=== PATIENT | female | born 1985 | race American Indian/Alaskan Native ===

== ENCOUNTER 2016-12-10 21:36 | Emergency (ER) | payer OTHER, MEDICAID ==
[2016-12-10] MEDS ORDERED: Acetaminophen/oxyCODONE 325-5 MG Tab PO ONE ×2 (21:57→23:58)
--- NOTE | 2016-12-10 22:01 | EDM.PDOC ---
ED HPI Skin/Rash - General Stated Complaint: COUGHT RING ON SOMETHING Time Seen by Provider: 12/10/16 21:40 Source: Reports: Patient History Limitations: Reports: No limitations - History of Present Illness INITIAL COMMENTS - FREE TEXT/NARRATIVE: caught engagement ring- on left ring finger on hook in closet. pain and swelling to left index finger, attempted to get engagement ring off but unable. Ring bent and has not been off in "very long time" Occurred 5-10 minutes PIT SLAG[place]. Location, Skin: Reports: upper extremity, left Quality: Reports: Throbbing Severity: severe Place of Occurrence: home - Related Data Allergies Allergy/AdvReac Type Severity Reaction Status Date / Time No Known Allergies Allergy Verified 12/11/16 03:03 Home Meds: Ambulatory Orders Medication Instructions Recorded Confirmed . [No Known Home Meds] 12/11/16 12/11/16 Past Medical History - Past Health History Medical/Surgical History: Denies Medical/Surgical History Social & Family History - Family History Family Medical History: Noncontributory - Tobacco Use Smoking Status *Q: Current Every Day Smoker Years of Tobacco use: 14 Packs/Tins Daily: 0.5 Used Tobacco, but Quit: No Second Hand Smoke Exposure: Yes - Alcohol Use Days Per Week of Alcohol Use: 2 Number of Drinks Per Day: 17 Total Drinks Per Week: 34 - Recreational Drug Use Recreational Drug Use: No Drug Use in Last 12 Months: No - Sexual History Sexual History: Reports: Sexually active - Living Situation & Occupation Occupation: employed ED ROS GENERAL - Review of Systems Review Of Systems: ROS reveals no pertinent complaints other than HPI. ED EXAM, SKIN/RASH Exam: See Below Exam Limited By: No limitations General Appearance: alert, moderate distress Eye Exam: bilateral eye: EOMI Throat/Mouth: Normal inspection Head: atraumatic Respiratory/Chest: no respiratory distress Cardiovascular: normal peripheral pulses, regular rate, rhythm Extremities: joint swelling (MIP), limited range of motion, other (left ring finger swollen, cicumferential abrasion to left 4th finger. Good capillary refill.). No: normal inspection, normal range of motion, mottled Neurological: alert, oriented, normal cognition Skin: Warm, Dry, Intact, Ecchymosis (proximal 4th left finger) Location, Skin: lower extremity, right Associated features: tenderness ED SKIN PROCEDURES - Additional/Other Procedure(s) Other (Free Text) Procedure(s): Gold band with white stones removed with ring cutter and plier. Superficial laceration proximal howell surface and web between 4th and 5th finger. Ring given to patient's mother. Course - Vital Signs Last Recorded V/S: Last Vital Signs Temp 97.7 F 12/10/16 21:40 Pulse 90 12/10/16 21:40 Resp 20 12/10/16 21:40 BP 133/94 H 12/10/16 21:40 Pulse Ox 100 12/10/16 21:40 - Orders/Labs/Meds Meds: Medications Discontinued Medications Generic Name Dose Route Start Last Admin Trade Name Peter PRN Reason Stop Dose Admin Oxycodone/Acetaminophen 1 tab 12/10/16 21:57 12/10/16 22:28 Percocet 325-5 Mg PO 12/10/16 21:58 1 tab ONETIME ONE Administration Oxycodone/Acetaminophen Confirm 12/10/16 23:58 12/11/16 00:00 Percocet 325-5 Mg Administered 12/10/16 23:59 Not Given Dose 1 tab .ROUTE .STK-MED ONE - Radiology Interpretation Free Text/Narrative:: xray left 4th finger and hand negative for fracture or dislocation. - Re-Assessments/Exams Free Text/Narrative Re-Assessment/Exam: Left 4th finger swollen improved following removal of ring and percocet , limited ROM due to pain and swelling of joint.. slight tingling back of finger. . Departure - Departure Time of Disposition: 23:46 Disposition: Home, Self-Care 01 Condition: good Clinical Impression: Injury of ring finger Qualifiers: Encounter type: initial encounter Laterality: right Qualified Code(s): S69.91XA - Unspecified injury of right wrist, hand and finger(s), initial encounter Instructions: Abrasion Additional Instructions: ice to hand finger rest elevation follow up if pain and swelling worse hydrocodone 10/325 one as needed for pain after 2 am x1 dose alternate tylenol and ibuprofen for discomfort
[2016-12-10] MEDS ORDERED: Acetaminophen/oxyCODONE 325-5 MG Tab ONE (23:58)
[2016-12-11 03:03] VITALS: BP 133/94
== END 2016-12-11 | disposition home or self-care (01) ==
LOC: DL.ED 21:36
DX: S61.412A Laceration without foreign body of left hand, initial encounter (principal); S60.042A Contusion of left ring finger without damage to nail, initial encounter; F17.210 Nicotine dependence, cigarettes, uncomplicated; W23.0XXA Caught, crushed, jammed, or pinched between moving objects, initial encounter; Y92.009 Unspecified place in unspecified non-institutional (private) residence as the place of occurrence of the external cause
CPT/HCPCS: 73130; 99283; A9270

== ENCOUNTER 2017-03-23 21:03 | Emergency (ER) | payer OTHER, MEDICAID | END 2017-03-23 22:40 | disposition left against medical advice (07) | LOC: DL.ED 21:03 | DX: Z53.21 Procedure and treatment not carried out due to patient leaving prior to being seen by health care provider (principal) ==

== ENCOUNTER 2017-03-24 17:46 | Emergency (ER) | payer OTHER, MEDICAID ==
[2017-03-24 18:12] VITALS: BP 131/75
--- NOTE | 2017-03-24 18:15 | EDM.PDOC ---
Scribed by Patricia Riggs 03/24/17 1813 for Donato Simpson MD ED HPI GENERAL MEDICAL PROBLEM - General Chief Complaint: Upper Extremity Injury/Pain Stated Complaint: [id number] RING WONT COME OFF Time Seen by Provider: 03/24/17 17:59 Source of Information: Reports: Patient, RN, RN Notes Reviewed History Limitations: Reports: No Limitations - History of Present Illness INITIAL COMMENTS - FREE TEXT/NARRATIVE: Ring stuck on left 4th finger x3 days. Quality: Reports: Ache Severity: Moderate Improves with: Reports: None Worsens with: Reports: None Associated Symptoms: Reports: No Other Symptoms - Related Data Allergies Allergy/AdvReac Type Severity Reaction Status Date / Time No Known Allergies Allergy Verified 12/11/16 03:03 Home Meds: Home Meds . [No Known Home Meds] 12/11/16 [History] Past Medical History - Past Health History Medical/Surgical History: Denies Medical/Surgical History Social & Family History - Family History Family Medical History: Noncontributory - Tobacco Use Smoking Status *Q: Current Every Day Smoker Years of Tobacco use: 14 Packs/Tins Daily: 0.5 Used Tobacco, but Quit: No Second Hand Smoke Exposure: Yes - Alcohol Use Days Per Week of Alcohol Use: 2 Number of Drinks Per Day: 17 Total Drinks Per Week: 34 - Recreational Drug Use Recreational Drug Use: No Drug Use in Last 12 Months: No - Sexual History Sexual History: Reports: Sexually Active - Living Situation & Occupation Occupation: Employed Review of Systems - Review of Systems Review Of Systems: ROS reveals no pertinent complaints other than HPI. ED EXAM, GENERAL - Physical Exam Exam: See Below Exam Limited By: No Limitations General Appearance: Alert, WD/WN, No Apparent Distress Extremities: Other (Ring on left 4th finger with moderate swelling of the proximal interphanageal joint of the left 4th finger over which she is unable to remove the ring. ) Course - Vital Signs Text/Narrative:: See nurses noted for vitals. Last Recorded V/S: Last Vital Signs Temp 36.5 C 03/24/17 18:10 Pulse 108 H 03/24/17 18:10 Resp 14 03/24/17 18:10 BP 131/75 03/24/17 18:10 Pulse Ox 100 03/24/17 18:10 - Re-Assessments/Exams Free Text/Narrative Re-Assessment/Exam: 03/24/17 18:12 The ring was removed with a battery operated ring cutter with no complications. Departure - Departure Time of Disposition: 18:08 Disposition: Home, Self-Care 01 Condition: Good Clinical Impression: Tight ring on finger - Discharge Information Instructions: Finger Sprain Forms: ED Department Discharge Additional Instructions: Ice the finger until the swelling goes down. Do not put a ring on your finger. Follow up in clinic if any further problems. I have read and agree with the documentation that has been completed regarding this visit. By signing this record, I attest that the documentation was completed in my physical presence and is an accurate record of the encounter.
== END 2017-03-24 18:18 | disposition home or self-care (01) ==
LOC: DL.ED 17:46
DX: M79.89 Other specified soft tissue disorders (principal); F17.210 Nicotine dependence, cigarettes, uncomplicated
CPT/HCPCS: 99283

== ENCOUNTER 2017-07-15 22:15 | Emergency (ER) | payer OTHER, MEDICAID ==
[2017-07-15 22:20] VITALS: BP 120/77
[2017-07-15] MEDS ORDERED: Codeine/Promethazine 10-6.25 MG/5 ML Syrup 5 ML UD Cup PO ONE (22:31)
[2017-07-15] MEDS ORDERED: Albuterol/Ipratropium 3.0-0.5 MG/3 ML Neb Soln NEB ONE (22:31)
--- NOTE | 2017-07-15 22:38 | EDM.PDOC ---
ED HPI GENERAL MEDICAL PROBLEM - General Chief Complaint: ENT Problem Stated Complaint: ? STREP THROAT Time Seen by Provider: 07/15/17 22:32 Source of Information: Reports: Patient History Limitations: Reports: No Limitations - History of Present Illness INITIAL COMMENTS - FREE TEXT/NARRATIVE: 2 days h/o cough & sore throat and not getting better. Throat Pain Score (Numeric/FACES): 6 - Related Data Allergies Allergy/AdvReac Type Severity Reaction Status Date / Time No Known Allergies Allergy Verified 07/15/17 22:20 Home Meds: Home Meds . [No Known Home Meds] 12/11/16 [History] Past Medical History - Past Health History Medical/Surgical History: Denies Medical/Surgical History - Past Surgical History Female Surgical History: Reports: Hysterectomy Social & Family History - Family History Family Medical History: Noncontributory - Tobacco Use Smoking Status *Q: Current Every Day Smoker Years of Tobacco use: 14 Packs/Tins Daily: 0.5 Used Tobacco, but Quit: No Second Hand Smoke Exposure: Yes - Caffeine Use Caffeine Use: Reports: Soda, Tea - Alcohol Use Days Per Week of Alcohol Use: 2 Number of Drinks Per Day: 17 Total Drinks Per Week: 34 - Recreational Drug Use Recreational Drug Use: No Drug Use in Last 12 Months: No - Sexual History Sexual History: Reports: Sexually Active - Living Situation & Occupation Occupation: Employed ED ROS ENT - Review of Systems Review Of Systems: ROS reveals no pertinent complaints other than HPI. ED EXAM, ENT - Physical Exam Exam: See Below Exam Limited By: No Limitations General Appearance: Alert, WD/WN, Mild Distress, Moderate Distress, Other (upset ) Ears: Hearing Grossly Normal Mouth/Throat: Pharyngeal Erythema, Tonsillar Erythema Head: Atraumatic Neck: Non-Tender, Full Range of Motion Respiratory/Chest: Rhonchi, Wheezing. No: No Accessory Muscle Use, Decreased Breath Sounds Cardiovascular: Regular Rate, Rhythm GI/Abdominal: Soft, Non-Tender Neurological: Alert, Oriented, Normal Cognition, Normal Gait, No Motor/Sensory Deficits Psychiatric: Flat Affect Skin: Warm, Dry, Normal Color Lymphatic: No Adenopathy Course - Vital Signs Last Recorded V/S: Last Vital Signs Temp 36.6 C 07/15/17 22:17 Pulse 91 07/15/17 22:17 Resp 18 07/15/17 22:17 BP 120/77 07/15/17 22:17 Pulse Ox 100 07/15/17 22:17 - Orders/Labs/Meds Orders: Active Orders 24 hr Category Date Time Status RT Aerosol Therapy [RC] ASDIRECTED Care 07/15/17 22:31 Active CULTURE STREP A CONFIRMATION [RM] Stat Lab 07/15/17 22:24 Results STREP SCRN A RAPID W CULT CONF [RM] Stat Lab 07/15/17 22:24 Results Meds: Medications Discontinued Medications Generic Name Dose Route Start Last Admin Trade Name Freq PRN Reason Stop Dose Admin Albuterol/Ipratropium 3 ml 07/15/17 22:31 07/15/17 22:44 Duoneb 3.0-0.5 Mg/3 Ml NEB 07/15/17 22:32 3 ml ONETIME ONE Administration Amoxicillin 500 mg 07/15/17 22:54 Amoxil PO 07/15/17 22:55 ONETIME ONE Promethazine HCl/Codeine 5 ml 07/15/17 22:31 07/15/17 22:45 Phenergan With Codeine PO 07/15/17 22:32 5 ml ONETIME ONE Administration - Re-Assessments/Exams Free Text/Narrative Re-Assessment/Exam: 07/15/17 22:56 results discussed with pt who is feeling better. Departure - Departure Time of Disposition: 22:56 Disposition: Home, Self-Care 01 Clinical Impression: Bronchospasm with bronchitis, acute, Tonsillitis - Discharge Information Instructions: Tonsillitis, [id number] Forms: ED Department Discharge Additional Instructions: 1) rest as much as possible 2) don't sleep flat at night 3) drink lots of liquids 4) follow up at clinic or recheck as needed rx given; amox 250mg tid x 30 phenergan codeine syrup qid prn x 4oz - My Orders Last 24 Hours: My Active Orders 07/15/17 22:24 CULTURE STREP A CONFIRMATION [RM] Stat STREP SCRN A RAPID W CULT CONF [RM] Stat 07/15/17 22:31 RT Aerosol Therapy [RC] ASDIRECTED - Assessment/Plan Last 24 Hours: My Active Orders 07/15/17 22:24 CULTURE STREP A CONFIRMATION [RM] Stat STREP SCRN A RAPID W CULT CONF [RM] Stat 07/15/17 22:31 RT Aerosol Therapy [RC] ASDIRECTED
[2017-07-15] MEDS ORDERED: Amoxicillin 500 MG Cap PO ONE (22:54)
== END 2017-07-15 23:06 | disposition home or self-care (01) ==
LOC: DL.ED 22:15
DX: J20.9 Acute bronchitis, unspecified (principal); J03.90 Acute tonsillitis, unspecified; F17.210 Nicotine dependence, cigarettes, uncomplicated
CPT/HCPCS: 87081; 87430; 94640; 99283; A9270

== ENCOUNTER 2017-08-27 16:37 | Emergency (ER) | payer OTHER, MEDICAID ==
[2017-08-27] MEDS ORDERED: Albuterol 0.083% 2.5 MG/3 ML Neb Soln NEB ONE (16:55)
[2017-08-27] MEDS ORDERED: diphenhydrAMINE 50 MG/ML SDV IVPUSH ONE (16:55)
[2017-08-27] MEDS ORDERED: Sodium Chloride 0.9% 10 ML Syringe FLUSH PRN (16:55)
[2017-08-27] MEDS ORDERED: Sodium Chloride 0.9% 1,000 ML IV ONE (16:55)
[2017-08-27] MEDS ORDERED: methylPREDNISolone Sodium Succinate 125 MG/2 ML SDV IVPUSH ONE (16:55)
--- NOTE | 2017-08-27 17:53 | EDM.PDOC ---
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 Patient has no idea what she is reacting to. She did have a man nearby who had very strong cologne. Patient reports hives to face and itching without hives on bilateral arms. Admits to a sensation of tightness in the throat, but denies cough, wheezing, shortness of breath or breathing difficulty. Patient states she has never had an allergic reaction before. Onset: Today Duration: Getting Worse Location: Reports: Face Quality: Reports: Burning Severity: Moderate Improves with: Reports: None Worsens with: Reports: None Associated Symptoms: Reports: No Other Symptoms - Related Data Allergies Allergy/AdvReac Type Severity Reaction Status Date / Time No Known Allergies Allergy Verified 07/15/17 22:20 Home Meds: Home Meds Albuterol [IJD: Albuterol HFA] 2 puff INH ASDIRECTED PRN 08/27/17 [History] Past Medical History - Past Health History Medical/Surgical History: Denies Medical/Surgical History - Past Surgical History Female Surgical History: Reports: Hysterectomy Social & Family History - Family History Family Medical History: Noncontributory - Tobacco Use Smoking Status *Q: Current Every Day Smoker Years of Tobacco use: 14 Packs/Tins Daily: 0.5 Used Tobacco, but Quit: No Second Hand Smoke Exposure: Yes - Caffeine Use Caffeine Use: Reports: Soda, Tea - Alcohol Use Days Per Week of Alcohol Use: 2 Number of Drinks Per Day: 17 Total Drinks Per Week: 34 - Recreational Drug Use Recreational Drug Use: No Drug Use in Last 12 Months: No - Sexual History Sexual History: Reports: Sexually Active - Living Situation & Occupation Occupation: Employed ED ROS ALLERGIC REACTION - Review of Systems Review Of Systems: ROS reveals no pertinent complaints other than HPI. ED EXAM GENERAL NO PERIP PULSE - Physical Exam Exam: See Below Exam Limited By: No Limitations General Appearance: Anxious, Obese Eye Exam: Bilateral Eye: Normal Inspection Ears: Normal External Exam, Normal Canal, Hearing Grossly Normal, Normal TMs Nose: Normal Inspection, Normal Mucosa, No Blood Throat/Mouth: Normal Inspection, Normal Lips, Normal Teeth, Normal Gums, Normal Oropharynx, Normal Voice, No Airway Compromise Head: Atraumatic, Normocephalic Neck: Normal Inspection, Supple, Non-Tender, Full Range of Motion Respiratory/Chest: No: Wheezing Cardiovascular: Normal Peripheral Pulses, Regular Rate, Rhythm, No Edema, No Gallop, No JVD, No Murmur, No Rub GI/Abdominal: Other (benign and obese.) (Female) Exam: Deferred Rectal (Female) Exam: Deferred Back Exam: Normal Inspection, Full Range of Motion, NT Extremities: Normal Inspection, Normal Range of Motion, Non-Tender, Normal Capillary Refill, No Pedal Edema Neurological: Alert, Oriented, CN II-XII Intact, Normal Cognition, Normal Gait, Normal Reflexes, No Motor/Sensory Deficits Psychiatric: Anxious Skin Exam: Other (urticarial rash to face only.) Course - Vital Signs Last Recorded V/S: Last Vital Signs Temp 36.9 C 08/27/17 16:45 Pulse 100 08/27/17 16:45 Resp 18 08/27/17 16:45 BP Pulse Ox 100 08/27/17 16:45 - Orders/Labs/Meds Orders: Active Orders 24 hr Category Date Time Status Peripheral IV Care [RC] . DIRECTED Care 08/27/17 16:55 Active RT Aerosol Therapy [RC] ASDIRECTED Care 08/27/17 16:55 Active Sodium Chloride 0.9% [Normal Saline] 1,000 ml Med 08/27/17 16:55 Active IV .BOLUS Sodium Chloride 0.9% [Saline Flush] Med 08/27/17 16:55 Active 10 ml FLUSH ASDIRECTED PRN Peripheral IV Insertion Adult [OM.PC] Stat Oth 08/27/17 16:54 Ordered Medication Orders Sodium Chloride (Normal Saline) 1,000 mls @ 999 mls/hr IV .BOLUS ONE Stop: 08/27/17 17:55 Last Admin: 08/27/17 17:05 Dose: 999 mls/hr Sodium Chloride (Saline Flush) 10 ml FLUSH ASDIRECTED PRN PRN Reason: Keep Vein Open Last Admin: 08/27/17 17:00 Dose: 10 ml Meds: Medications Generic Name Dose Route Start Last Admin Trade Name Freq PRN Reason Stop Dose Admin Sodium Chloride 1,000 mls @ 999 mls/hr 08/27/17 16:55 08/27/17 17:05 Normal Saline IV 08/27/17 17:55 999 mls/hr .BOLUS ONE Administration Sodium Chloride 10 ml 08/27/17 16:55 08/27/17 17:00 Saline Flush FLUSH 10 ml ASDIRECTED PRN Administration Keep Vein Open Discontinued Medications Generic Name Dose Route Start Last Admin Trade Name Freq PRN Reason Stop Dose Admin Albuterol 2.5 mg 08/27/17 16:55 08/27/17 17:13 Proventil Neb Soln NEB 08/27/17 16:56 2.5 mg ONETIME ONE Administration Diphenhydramine HCl 25 mg 08/27/17 16:55 08/27/17 17:09 Benadryl IVPUSH 08/27/17 16:56 25 mg ONETIME ONE Administration Methylprednisolone Sodium Succinate 125 mg 08/27/17 16:55 08/27/17 17:07 Solu-Medrol IVPUSH 08/27/17 16:56 125 mg ONETIME ONE Administration Departure - Departure Time of Disposition: 18:00 Disposition: Home, Self-Care 01 Condition: Good Clinical Impression: Allergic reaction Qualifiers: Encounter type: initial encounter Qualified Code(s): T78.40XA - Allergy, unspecified, initial encounter - Discharge Information Instructions: Hives, Contact Dermatitis, Acko-ly-[id number] Forms: ED Department Discharge Additional Instructions: RX: Prednisone 20mg. RX: Zyrtec 10mg. Follow up in clinic if not improved in 24 hours. Return to ER if worse at any time. - My Orders Last 24 Hours: My Active Orders 08/27/17 16:54 Peripheral IV Insertion Adult [OM.PC] Stat 08/27/17 16:55 Peripheral IV Care [RC] . DIRECTED RT Aerosol Therapy [RC] ASDIRECTED Sodium Chloride 0.9% [Normal Saline] 1,000 ml IV .BOLUS Sodium Chloride 0.9% [Saline Flush] 10 ml FLUSH ASDIRECTED PRN - Assessment/Plan Last 24 Hours: My Active Orders 08/27/17 16:54 Peripheral IV Insertion Adult [OM.PC] Stat 08/27/17 16:55 Peripheral IV Care [RC] . DIRECTED RT Aerosol Therapy [RC] ASDIRECTED Sodium Chloride 0.9% [Normal Saline] 1,000 ml IV .BOLUS Sodium Chloride 0.9% [Saline Flush] 10 ml FLUSH ASDIRECTED PRN I have read and agree with the documentation that has been completed regarding this visit. By signing this record, I attest that the documentation was completed in my physical presence and is an accurate record of the encounter.
== END 2017-08-27 18:05 | disposition home or self-care (01) ==
LOC: DL.ED 16:37
DX: L50.0 Allergic urticaria (principal); F17.210 Nicotine dependence, cigarettes, uncomplicated
CPT/HCPCS: 96361; 96374; 96375; 99282; J1200; J2930; J7030; J7050; J7620

== ENCOUNTER 2017-08-28 02:13 | Emergency (ER) | payer OTHER, MEDICAID ==
[2017-08-28 02:22] VITALS: BP 147/84
[2017-08-28] MEDS ORDERED: diphenhydrAMINE 25 MG Tab PO ONE (02:34)
--- NOTE | 2017-08-28 02:41 | EDM.PDOC ---
ED HPI GENERAL MEDICAL PROBLEM - General Chief Complaint: Allergic Reaction Stated Complaint: ALLERGIC REACTION, ITCHY [id number] Time Seen by Provider: 08/28/17 02:30 Source of Information: Reports: Patient, RN, RN Notes Reviewed History Limitations: Reports: No Limitations - History of Present Illness INITIAL COMMENTS - FREE TEXT/NARRATIVE: Pt presents to ER with c/o increased itching to face and neck. She states she was seen in the ER earlier today and was given IV fluids, Benadryl, and a steroid. She states she has picked up the medications that she was prescribed at that visit and took them at midnight. She states she cannot sleep due to the itching. She states she has not had benadryl since she was seen in the ER. The trigger of reaction is still unknown. Pt denies any swelling of the throat or tongue or difficulty breathing. Onset: Gradual - Related Data Allergies Allergy/AdvReac Type Severity Reaction Status Date / Time No Known Allergies Allergy Verified 08/28/17 02:25 Home Meds: Home Meds Albuterol [IJD: Albuterol HFA] 2 puff INH ASDIRECTED PRN 08/27/17 [History] Past Medical History - Past Health History Medical/Surgical History: Denies Medical/Surgical History - Past Surgical History Female Surgical History: Reports: Hysterectomy Social & Family History - Family History Family Medical History: Noncontributory - Tobacco Use Smoking Status *Q: Current Every Day Smoker Years of Tobacco use: 14 Packs/Tins Daily: 5 Used Tobacco, but Quit: No Second Hand Smoke Exposure: Yes - Caffeine Use Caffeine Use: Reports: Coffee, Tea - Alcohol Use Days Per Week of Alcohol Use: 2 Number of Drinks Per Day: 17 Total Drinks Per Week: 34 - Recreational Drug Use Recreational Drug Use: No Drug Use in Last 12 Months: No - Sexual History Sexual History: Reports: Sexually Active - Living Situation & Occupation Occupation: Employed ED ROS ALLERGIC REACTION - Review of Systems Review Of Systems: ROS reveals no pertinent complaints other than HPI. ED EXAM GENERAL NO PERIP PULSE - Physical Exam Exam: See Below Exam Limited By: No Limitations General Appearance: Alert, WD/WN, Mild Distress Eye Exam: Bilateral Eye: EOMI, Normal Inspection Ears: Normal External Exam, Hearing Grossly Normal Nose: Normal Inspection Throat/Mouth: Normal Inspection, Normal Voice, No Airway Compromise Head: Atraumatic, Normocephalic Neck: Normal Inspection, Supple, Non-Tender, Full Range of Motion Respiratory/Chest: No Respiratory Distress, Lungs Clear, Normal Breath Sounds, No Accessory Muscle Use, Chest Non-Tender Cardiovascular: Normal Peripheral Pulses, Regular Rate, Rhythm, No Edema, No Gallop, No JVD, No Murmur, No Rub GI/Abdominal: Normal Bowel Sounds, Soft, Non-Tender, No Distention (Female) Exam: Deferred Rectal (Female) Exam: Deferred Back Exam: Normal Inspection, Full Range of Motion, NT Extremities: Normal Inspection, Normal Range of Motion, Non-Tender, Normal Capillary Refill, No Pedal Edema Neurological: Alert, Oriented, CN II-XII Intact, Normal Cognition, Normal Gait, Normal Reflexes, No Motor/Sensory Deficits Psychiatric: Normal Affect, Normal Mood Skin Exam: Warm, Dry, Intact, Rash (urticaria/hives to the face and neck) Lymphatic: No Adenopathy Course - Vital Signs Last Recorded V/S: Last Vital Signs Temp 97.1 F 08/28/17 02:17 Pulse 107 H 08/28/17 02:17 Resp 19 08/28/17 02:17 BP 147/84 H 08/28/17 02:17 Pulse Ox 100 08/28/17 02:17 - Orders/Labs/Meds Meds: Medications Discontinued Medications Generic Name Dose Route Start Last Admin Trade Name Petre PRN Reason Stop Dose Admin Diphenhydramine HCl 25 mg 08/28/17 02:34 08/28/17 02:39 Benadryl PO 08/28/17 02:35 25 mg ONETIME ONE Administration Departure - Departure Time of Disposition: 02:50 Disposition: Home, Self-Care 01 Condition: Fair Clinical Impression: Urticaria Contact dermatitis Qualifiers: Contact dermatitis type: allergic Contact dermatitis trigger: unspecified trigger Qualified Code(s): L23.9 - Allergic contact dermatitis, unspecified cause - Discharge Information Instructions: Hives, [id number], Allergies Forms: ED Department Discharge Additional Instructions: Continue taking medications as previously prescribed. May use benadryl for itching as directed. May use Benadryl gel over the counter, or Calamine lotion over the counter topical for the itch. Follow up with your primary care facility.
== END 2017-08-28 02:53 | disposition home or self-care (01) ==
LOC: DL.ED 02:13
DX: L23.9 Allergic contact dermatitis, unspecified cause (principal); L50.9 Urticaria, unspecified; F17.210 Nicotine dependence, cigarettes, uncomplicated
CPT/HCPCS: 99283; A9270

== ENCOUNTER 2017-12-05 00:10 | Emergency (ER) | payer OTHER, MEDICAID ==
[2017-12-05] MEDS ORDERED: Codeine/Promethazine 10-6.25 MG/5 ML Syrup 5 ML UD Cup PO ONE (00:11)
[2017-12-05 00:24] VITALS: BP 150/89
--- NOTE | 2017-12-05 00:37 | EDM.PDOC ---
ED HPI GENERAL MEDICAL PROBLEM - General Chief Complaint: ENT Problem Stated Complaint: SORE THROAT [id number] Time Seen by Provider: 12/05/17 00:36 Source of Information: Reports: Patient History Limitations: Reports: No Limitations - History of Present Illness INITIAL COMMENTS - FREE TEXT/NARRATIVE: woke up with sore throat congestion F/C. Generalized Pain Score (Numeric/FACES): 8 - Related Data Allergies Allergy/AdvReac Type Severity Reaction Status Date / Time No Known Allergies Allergy Verified 12/05/17 00:25 Home Meds: Home Meds Albuterol [IJD: Albuterol HFA] 2 puff INH ASDIRECTED PRN 08/27/17 [History] Past Medical History - Past Health History Medical/Surgical History: Denies Medical/Surgical History - Past Surgical History Female Surgical History: Reports: Hysterectomy Social & Family History - Family History Family Medical History: Noncontributory - Tobacco Use Smoking Status *Q: Current Every Day Smoker Years of Tobacco use: 15 Packs/Tins Daily: 5 Used Tobacco, but Quit: No Second Hand Smoke Exposure: Yes - Caffeine Use Caffeine Use: Reports: Tea - Alcohol Use Days Per Week of Alcohol Use: 2 Number of Drinks Per Day: 17 Total Drinks Per Week: 34 - Recreational Drug Use Recreational Drug Use: No Drug Use in Last 12 Months: No - Sexual History Sexual History: Reports: Sexually Active - Living Situation & Occupation Occupation: Employed ED ROS ENT - Review of Systems Review Of Systems: ROS reveals no pertinent complaints other than HPI. ED EXAM, ENT - Physical Exam Exam: See Below Exam Limited By: No Limitations General Appearance: Alert, WD/WN, Mild Distress, Other (distraught) Ears: TM Dullness Nose: Clear Rhinorrhea Mouth/Throat: Pharyngeal Erythema, Tonsillar Erythema Head: Atraumatic Neck: Non-Tender, Full Range of Motion Respiratory/Chest: No Respiratory Distress, No Accessory Muscle Use, Rhonchi. No: Decreased Breath Sounds Cardiovascular: Regular Rate, Rhythm GI/Abdominal: Soft, Non-Tender Neurological: Alert, Oriented, Normal Cognition, Normal Gait, No Motor/Sensory Deficits Psychiatric: Flat Affect Skin: Warm, Dry, Normal Color Lymphatic: No Adenopathy Course - Vital Signs Last Recorded V/S: Last Vital Signs Temp 36.9 C 12/05/17 00:15 Pulse 92 12/05/17 00:15 Resp 18 04/21/18 00:15 BP 150/89 H 12/05/17 00:15 Pulse Ox 100 12/05/17 00:15 - Orders/Labs/Meds Orders: Active Orders 24 hr Category Date Time Status CULTURE STREP A CONFIRMATION [] Stat Lab 12/05/17 00:28 Results STREP SCRN A RAPID W CULT CONF [] Stat Lab 12/05/17 00:28 Results Pen G Nic/Pen G Procaine [Bicillin C-R 600/600] Med 12/05/17 01:12 Once 1.2 millunits IM ONETIME ONE Medication Orders Penicillin G Procaine/Benzathine (Bicillin C-R 600/600) 1.2 millunits IM ONETIME ONE Stop: 12/05/17 01:13 Labs: Laboratory Tests 12/05/17 12/05/17 Range/Units 00:25 00:25 Urine Color Yellow (YELLOW) Urine Appearance Slightly cloudy (CLEAR) Urine pH 6.5 (5.0-9.0) Ur Specific [place] <= 1.005 (1.005-1.030) Urine Protein Negative (NEGATIVE) Urine Glucose (UA) Negative (NEGATIVE) Urine Ketones Negative (NEGATIVE) Urine Occult Blood Trace-intact H (NEGATIVE) Urine Nitrite Negative (NEGATIVE) Urine Bilirubin Negative (NEGATIVE) Urine Urobilinogen 0.2 (0.2-1.0) mg/dL Ur Leukocyte Esterase Negative (NEGATIVE) Urine RBC 0-5 /HPF Urine WBC 0-5 (0-5/HPF) /HPF Ur Epithelial Cells Few /HPF Urine Bacteria Few (0-FEW/HPF) /HPF Urine HCG, Qual Negative Meds: Medications Generic Name Dose Route Start Last Admin Trade Name Freq PRN Reason Stop Dose Admin Penicillin G Procaine/Benzathine 1.2 millunits 12/05/17 01:12 Bicillin C-R 600/600 IM 12/05/17 01:13 ONETIME ONE Departure - Departure Time of Disposition: 01:15 Disposition: Home, Self-Care 01 Condition: Good Clinical Impression: Tonsillitis, Bronchospasm with bronchitis, acute Sinusitis Qualifiers: Sinusitis location: frontal Chronicity: acute Recurrence: recurrent Qualified Code(s): J01.11 - Acute recurrent frontal sinusitis - Discharge Information Instructions: Sinusitis, Adult, [id number] Forms: ED Department Discharge Additional Instructions: 1) rest 2) don't sleep flat at night 3) follow up at clinic rx givne; phenergan codeine syrup qid prn - My Orders Last 24 Hours: My Active Orders 12/05/17 00:28 CULTURE STREP A CONFIRMATION [RM] Stat STREP SCRN A RAPID W CULT CONF [RM] Stat 12/05/17 01:12 Pen G Nic/Pen G Procaine [Bicillin C-R 600/600] 1.2 millunits IM ONETIME ONE - Assessment/Plan Last 24 Hours: My Active Orders 12/05/17 00:28 CULTURE STREP A CONFIRMATION [RM] Stat STREP SCRN A RAPID W CULT CONF [RM] Stat 12/05/17 01:12 Pen G Nic/Pen G Procaine [Bicillin C-R 600/600] 1.2 millunits IM ONETIME ONE
[2017-12-05] MEDS ORDERED: Penicillin G Benzathine/Procaine 600-600 1.2 Millunits/2 ML Syringe IM ONE (01:12)
[2017-12-05] MEDS ORDERED: Codeine/Promethazine 10-6.25 MG/5 ML Syrup 5 ML UD Cup ONE (01:17)
== END 2017-12-05 01:38 | disposition home or self-care (01) ==
LOC: DL.ED 00:10
DX: J01.11 Acute recurrent frontal sinusitis (principal); J03.90 Acute tonsillitis, unspecified; J20.9 Acute bronchitis, unspecified; F17.210 Nicotine dependence, cigarettes, uncomplicated
CPT/HCPCS: 81001; 81025; 87081; 87430; 87804; 96372; 99283; J0558; A9270-GY

== ENCOUNTER 2018-02-14 23:07 | Emergency (ER) | payer OTHER, MEDICAID ==
[2018-02-14 23:42] VITALS: BP 135/85
[2018-02-15] MEDS ORDERED: cefTRIAXone 250 MG, Lidocaine 1% 0.9 ML IM ONE ×2 (00:54)
[2018-02-15] MEDS ORDERED: Acyclovir 200 MG Cap PO ONE (00:54)
[2018-02-15] MEDS ORDERED: Azithromycin 250 MG Tab PO ONE (00:54)
--- NOTE | 2018-02-15 01:07 | EDM.PDOC ---
ED HPI GENERAL MEDICAL PROBLEM - General Chief Complaint: Headache Stated Complaint: HEADACHE [id number] Time Seen by Provider: 02/14/18 23:40 Source of Information: Reports: Patient History Limitations: Reports: No Limitations - History of Present Illness INITIAL COMMENTS - FREE TEXT/NARRATIVE: Ed with initial c/o headache, generalized for 3 days. Admits primary reason for presentation is sudden appearance of sores in genital area. Admits recent unprotected sex . Chills no fever . No urinary sx, pain with urine stinging area. No hx of similar sx. No vaginal discharge. Perineal Area Pain Score (Numeric/FACES): 10 - Related Data Allergies Allergy/AdvReac Type Severity Reaction Status Date / Time No Known Allergies Allergy Verified 02/14/18 23:42 Home Meds: Home Meds . [No Known Home Meds] 02/14/18 [History] Past Medical History - Past Health History Medical/Surgical History: Denies Medical/Surgical History HEENT History: Reports: None Cardiovascular History: Reports: None Respiratory History: Reports: Bronchitis, Recurrent [employer] History: Reports: - Infectious Disease History Infectious Disease History: Reports: Chicken Pox - Past Surgical History Female Surgical History: Reports: Hysterectomy Social & Family History - Family History Family Medical History: Noncontributory - Tobacco Use Smoking Status *Q: Current Every Day Smoker Years of Tobacco use: 15 Packs/Tins Daily: 0.2 Second Hand Smoke Exposure: Yes - Caffeine Use Caffeine Use: Reports: Tea - Alcohol Use Days Per Week of Alcohol Use: 2 Number of Drinks Per Day: 5 Total Drinks Per Week: 10 - Recreational Drug Use Recreational Drug Use: No - Sexual History Sexual History: Reports: Sexually Active - Living Situation & Occupation Occupation: Employed ED ROS GENERAL - Review of Systems Review Of Systems: ROS reveals no pertinent complaints other than HPI. - Physical Exam Exam: See Below Exam Limited By: No Limitations General Appearance: Alert, Anxious, Mild Distress Ears: Normal External Exam Throat/Mouth: Normal Inspection Head Exam: Atraumatic, Normocephalic Neck: Normal Inspection Respiratory/Chest: No Respiratory Distress Cardiovascular: Normal Peripheral Pulses, Regular Rate, Rhythm GI/Abdominal: Normal Bowel Sounds (Female) Exam: Other (scattered shallow ulcerations to inner and outer labia , Largest patients left at 1 and 5 'oclock position). No: Normal External Exam Neuro Exam (Abbreviated): Alert, Oriented Extremities: Normal Range of Motion Psychiatric: Anxious Skin Exam: Warm, Dry, Intact, Normal Color Course - Vital Signs Last Recorded V/S: Last Vital Signs Temp 98.0 F 02/14/18 23:37 Pulse 79 02/14/18 23:37 Resp 16 02/14/18 23:37 BP 135/85 02/14/18 23:37 Pulse Ox 100 02/14/18 23:37 - Orders/Labs/Meds Labs: Laboratory Tests 02/14/18 Range/Units 23:40 Urine Color Yellow (YELLOW) Urine Appearance Turbid (CLEAR) Urine pH 8.5 (5.0-9.0) Ur Specific [place] 1.015 (1.005-1.030) Urine Protein Trace H (NEGATIVE) Urine Glucose (UA) Negative (NEGATIVE) Urine Ketones Negative (NEGATIVE) Urine Occult Blood Negative (NEGATIVE) Urine Nitrite Positive H (NEGATIVE) Urine Bilirubin Negative (NEGATIVE) Urine Urobilinogen 1.0 (0.2-1.0) mg/dL Ur Leukocyte Esterase Small H (NEGATIVE) Urine RBC Not seen /HPF Urine WBC 5-10 H (0-5/HPF) /HPF Ur Epithelial Cells Moderate H /HPF Amorphous Sediment Moderate H (0/HPF) /HPF Urine Bacteria Many H (0-FEW/HPF) /HPF Meds: Medications Discontinued Medications Generic Name Dose Route Start Last Admin Trade Name Freq PRN Reason Stop Dose Admin Acyclovir 400 mg 02/15/18 00:54 02/15/18 01:16 Zovirax PO 02/15/18 00:55 400 mg ONETIME ONE Administration Azithromycin 1,000 mg 02/15/18 00:54 02/15/18 01:16 Zithromax PO 02/15/18 00:55 1,000 mg ONETIME ONE Administration Ceftriaxone Sodium 250 mg/ 0 mg 02/15/18 00:54 02/15/18 01:16 Lidocaine HCl 0.9 ml IM 02/15/18 00:55 1 inj ONETIME ONE Administration Departure - Departure Time of Disposition: 01:01 Disposition: Home, Self-Care 01 Condition: Good Clinical Impression: Unprotected sexual intercourse, Genital labial ulcer UTI (urinary tract infection) Qualifiers: Urinary tract infection type: acute cystitis Hematuria presence: with hematuria Qualified Code(s): N30.01 - Acute cystitis with hematuria - Discharge Information Instructions: Sexually Transmitted Infection, Urinary Tract Infection, Adult Referrals: PCP,None [Ordering Only Provider] - Forms: ED Department Discharge Additional Instructions: follow up with primary care acyclovir 400mg one three times daily for one week cipro 500mg one three times daily for 5 days tylenol or ibuprofen for discomfort good hygiene practice safe sex
== END 2018-02-15 01:35 | disposition home or self-care (01) ==
LOC: DL.ED 23:07
DX: N30.01 Acute cystitis with hematuria (principal); N76.6 Ulceration of vulva; F17.210 Nicotine dependence, cigarettes, uncomplicated; Z72.89 Other problems related to lifestyle
CPT/HCPCS: 81001; 87491; 87591; 96372; 99283; A9270; J0696